=== PATIENT | male | born 1950 | race Caucasian/White ===

== ENCOUNTER 2020-08-21 08:54 | Day surgery (SDC) | payer MEDICARE ==
[2020-08-20 10:08] LABS: BASOPHILS % (AUTO) 0.7 % (0-1); EOSINOPHILS # (AUTO) 0.2 X10'3 (0-0.9); EOSINOPHILS % (AUTO) 3.5 % (0-6); HEMATOCRIT 45.7 % (42.0-52.0); HEMOGLOBIN 15.3 g/dl (14.0-17.9); LYMPHOCYTES # (AUTO) 1.1 X10'3 (1.1-4.8); LYMPHOCYTES % (AUTO) 18.4 % (21-51); MEAN CORPUSCULAR HEMOGLOBIN 30.9 PG (27.0-31.0); MEAN CORPUSCULAR HGB CONC 33.6 g/dL (33.0-36.5); MEAN CORPUSCULAR VOLUME 92.2 FL (78-98); MEAN PLATELET VOLUME 9.2 FL (7.4-10.4); MONOCYTES # (AUTO) 0.6 X10'3 (0-0.9); MONOCYTES % (AUTO) 10.9 % (2-12); NEUTROPHILS % (AUTO) 66.5 % (42-75); PLATELET COUNT 133 X10'3 (140-440); RED BLOOD COUNT 4.96 X10'6 (4.70-6.10); RED CELL DISTRIBUTION WIDTH 12.6 % (11.5-14.5); WHITE BLOOD COUNT 5.9 X10'3 (4.5-11.0)
[2020-08-20 10:11] LABS: ALBUMIN 3.7 G/DL (3.4-5.0); ANION GAP 7 (8-16); BLOOD UREA NITROGEN 17 MG/DL (7-18); BUN/CREATININE RATIO 17.9 (5.4-32.0); CALCIUM 8.7 MG/DL (8.5-10.1); CHLORIDE 104 MMOL/L (99-107); CREATININE 0.95 MG/DL (0.60-1.10); GLUCOSE 117 MG/DL (70-104); POTASSIUM 4.1 MMOL/L (3.5-5.1); SODIUM 144 MMOL/L (135-145); TOTAL CARBON DIOXIDE 32.8 MMOL/L (24-32); eGFR 79 ML/MIN
[2020-08-20 10:14] LABS: PARTIAL THROMBOPLASTIN TIME 31 SECONDS (22-32)
[2020-08-21] VITALS (11 sets, daily range): BP systolic 121–156; BP diastolic 58–78
[~2020-08-21] VITALS: Ht 188 cm; Wt 93.6 kg
[~2020-08-21 08:54] MED LIST: ACAR25TA2 PO; ACAR50TA4 PO; ASPI-1071 PO; ASPI-1265 PO; ATOR20TA PO; CARV6.253 PO; CHOL2000 PO; ISOS30TA6 PO; NITR0.4T51 SL; TICA90TA2 PO
[2020-08-21] MEDS ORDERED: LIDOcaine/PRILOcaine 5gm cream TP ONE (09:10)
[2020-08-21] MEDS ORDERED: normal saline 1000ml 1,000 ML IV SCH ×2 (09:10→12:40)
[2020-08-21] MEDS ORDERED: ATOR80TA PO (09:28)
[2020-08-21] MEDS ORDERED: DAPA10TA PO (09:28)
[2020-08-21] MEDS ORDERED: nitroGLYCERIN-Tridil 50MG/D5W 250 ML IV ONE (10:54)
[2020-08-21] MEDS ORDERED: iohexol 350MG/ML 100ml bottle IV ONE (10:55)
[2020-08-21] MEDS ORDERED: LIDOcaine 1% (10mg/ml)w/preservative injection 20ml MDV ONE (10:55)
[2020-08-21] MEDS ORDERED: verapamil 2.5 mg/ml inj IV ONE (10:55)
[2020-08-21] MEDS ORDERED: midazolam 2 mg/2 ml injection ONE (10:55)
[2020-08-21] MEDS ORDERED: fentaNYL/PF 50MCG/1 ML 2ML syringe ONE (10:55)
[2020-08-21] MEDS ORDERED: heparin 1,000unit/ml 10ml vial 10 ML ONE (10:55)
[2020-08-21] MEDS ORDERED: iohexol 350 MG/ML 50ML vial IV ONE (10:55)
[2020-08-21] MEDS ORDERED: diphenhydrAMINE 50 mg/ml inj ONE (11:20)
== END 2020-08-21 16:55 | disposition home or self-care (01) ==
LOC: SSTAY O 08:54
PROVIDERS: ATTEND Internal Medicine Cardiovascular Disease
DX: R94.39 Abnormal result of other cardiovascular function study (principal); T82.855A Stenosis of coronary artery stent, initial encounter; I25.10 Atherosclerotic heart disease of native coronary artery without angina pectoris; E78.5 Hyperlipidemia, unspecified; I10 Essential (primary) hypertension; E11.40 Type 2 diabetes mellitus with diabetic neuropathy, unspecified; Z87.891 Personal history of nicotine dependence; Z82.49 Family history of ischemic heart disease and other diseases of the circulatory system; Z95.5 Presence of coronary angioplasty implant and graft; Z79.899 Other long term (current) drug therapy; Z79.82 Long term (current) use of aspirin; Y83.8 Other surgical procedures as the cause of abnormal reaction of the patient, or of later complication, without mention of misadventure at the time of the procedure; Y92.89 Other specified places as the place of occurrence of the external cause
CPT/HCPCS: 36415; 80048; 85025; 85610; 85730; 93005; 93458; 99152; 99153; C1769; C1894; J1200; J1644; J2001; J2250; J3010; J7030; Q9967; A4620; A5120; J3490

== ENCOUNTER 2023-06-28 10:54 | Emergency (ER) | payer MEDICARE ==
[~2023-06-28] VITALS: Ht 185.4 cm; Wt 74.8 kg
[~2023-06-28 10:54] MED LIST changes: -ACAR50TA4 PO; -ASPI-1265 PO; -ATOR20TA PO; +ATOR80TA PO; -CHOL2000 PO; +DAPA10TA PO; -ISOS30TA6 PO; -NITR0.4T51 SL; -TICA90TA2 PO
[2023-06-28 10:56] VITALS: TEMP 98.1
[2023-06-28 11:27] LABS: BILIRUBIN,URINE MODERATE (Neg); CLARITY,URINE CLOUDY (Clear); COLOR,URINE AMBER (Yellow); GLUCOSE, URINE 250 mg/dl (Neg); KETONES,URINE TRACE mg/dl (Neg); LEUKOCYTE ESTERASE ,URINE TRACE (Neg); OCCULT BLOOD,URINE MODERATE (Neg); PH,URINE 6.5 (4.8-8.0); PROTEIN,URINE 100 mg/dl (Neg)
[2023-06-28 11:28] LABS: BASOPHILS # (AUTO) 0.2 X10'3 (0-0.2); BASOPHILS % (AUTO) 1.8 % (0-1); EOSINOPHILS # (AUTO) 0.2 X10'3 (0-0.9); EOSINOPHILS % (AUTO) 2.4 % (0-6); HEMATOCRIT 47.4 % (42.0-52.0); HEMOGLOBIN 15.7 g/dl (14.0-17.9); LYMPHOCYTES # (AUTO) 0.8 X10'3 (1.1-4.8); LYMPHOCYTES % (AUTO) 7.6 % (21-51); MEAN CORPUSCULAR HEMOGLOBIN 30.4 PG (27.0-31.0); MEAN CORPUSCULAR HGB CONC 33.1 g/dL (33.0-36.5); MEAN CORPUSCULAR VOLUME 91.9 FL (78-98); MONOCYTES # (AUTO) 0.7 X10'3 (0-0.9); MONOCYTES % (AUTO) 7.1 % (2-12); NEUTROPHILS # (AUTO) 8.1 X10'3 (1.8-7.7); NEUTROPHILS % (AUTO) 81.1 % (42-75); PLATELET COUNT 142 X10'3 (140-440); RED BLOOD COUNT 5.15 X10'6 (4.70-6.10); RED CELL DISTRIBUTION WIDTH 12.8 % (11.5-14.5); WHITE BLOOD COUNT 9.9 X10'3 (4.5-11.0)
[2023-06-28 11:39] LABS: UA COLLECTION TYPE CLN CATCH MIDSTREAM
[2023-06-28 11:40] LABS: NITRITES, URINE NEGATIVE (Neg)
[2023-06-28 11:41] LABS: RBC,URINE TNTC /HPF (0-2)
[2023-06-28 11:42] LABS: BACTERIA,URINE 2+ /HPF (Neg)
[2023-06-28 11:43] LABS: SQUAMOUS EPITHELIAL CELL,UR FEW /LPF (FEW); WBC,URINE 0-4 /HPF (0-4)
[2023-06-28 11:45] LABS: ALANINE AMINOTRANSFERASE 46 U/L (12-78); ALBUMIN 3.7 G/DL (3.4-5.0); ALBUMIN/GLOBULIN RATIO 1.1 (1.1-1.5); ALKALINE PHOSPHATASE 81 IU/L (46-116); ANION GAP 7 (8-16); ASPARTATE AMINO TRANSFERASE 35 U/L (10-37); BILIRUBIN,TOTAL 0.8 MG/DL (0.1-1.0); BLOOD UREA NITROGEN 13 MG/DL (7-18); BUN/CREATININE RATIO 12.1 (10.0-20.0); CHLORIDE 105 MMOL/L (99-107); CREATININE 1.07 MG/DL (0.60-1.10); GLUCOSE 253 MG/DL (70-104); LIPASE 222 U/L (73-393); POTASSIUM 4.3 MMOL/L (3.5-5.1); SODIUM 139 MMOL/L (135-145); TOTAL CARBON DIOXIDE 27.1 MMOL/L (24-32); TOTAL PROTEIN 7.2 G/DL (6.4-8.2); eCRCL 66 ML/MIN; eGFR 68 ML/MIN
[2023-06-28] MEDS ORDERED: morphine 2 MG/ML inj. syringe IM ONE (14:30)
[2023-06-28] MEDS ORDERED: ondansetron 4mg rapidly disintigrating tab PO ONE ×2 (14:30→16:30)
[2023-06-28] MEDS ORDERED: normal saline 1000ml 1,000 ML IV ONE (15:40)
[2023-06-28 15:43] VITALS: BP 163/81; PULSE 84; O2SAT 98
[2023-06-28] MEDS ORDERED: FLO0.4C PO (16:13)
[2023-06-28] MEDS ORDERED: OXYC-150 PO (16:13)
[2023-06-28] MEDS ORDERED: oxyCODONE/APAP 10/325mg tablet PO ONE (16:30)
[2023-06-28] MEDS ORDERED: ONDA4TAB12 PO (16:31)
[2023-06-28 16:33] VITALS: RESP 18
== END 2023-06-28 16:47 | disposition home or self-care (01) ==
LOC: ER 10:54
DX: N13.2 Hydronephrosis with renal and ureteral calculous obstruction (principal); Z91.013 Allergy to seafood; Z79.82 Long term (current) use of aspirin; Z79.899 Other long term (current) drug therapy
CPT/HCPCS: 36415; 74176; 80053; 81001; 83690; 85025; 87088; 96372; 99285; J2270; J7030